=== PATIENT | female | born 1970 | race Caucasian/White ===

== ENCOUNTER 2021-02-23 14:01 | Outpatient (RCR) | payer OTHER | END 2021-05-15 | disposition home or self-care (01) | LOC: WSOH | DX: M25.511 Pain in right shoulder (principal); Z87.59 Personal history of other complications of pregnancy, childbirth and the puerperium; Z98.890 Other specified postprocedural states; Y99.0 Civilian activity done for income or pay | CPT/HCPCS: J3301 ==

== ENCOUNTER 2021-05-23 14:56 | Outpatient (RCR) | payer OTHER | END 2021-06-09 | disposition home or self-care (01) | LOC: WSPT | DX: M25.551 Pain in right hip (principal) | CPT/HCPCS: G0283-GP ==

== ENCOUNTER → 2021-06-06 | Outpatient (CLI) | payer OTHER | LOC: COL.RAD 09:00 | DX: M75.121 Complete rotator cuff tear or rupture of right shoulder, not specified as traumatic (principal); M75.51 Bursitis of right shoulder ==

== ENCOUNTER 2021-07-05 15:55 | Outpatient (CLI) | payer OTHER ==
[~2021-07-05] VITALS: Ht 134.6 cm; Wt 71.0 kg
[2021-07-05 16:35] VITALS: BP 96/67; PULSE 88
== END 2021-07-05 18:04 | disposition home or self-care (01) ==
LOC: EUO 15:55
DX: D50.9 Iron deficiency anemia, unspecified (principal)
CPT/HCPCS: J1756

== ENCOUNTER 2021-12-14 15:27 | Emergency (ER) | payer OTHER ==
[~2021-12-14] VITALS: Ht 152.4 cm; Wt 69.5 kg
[2021-12-14 15:43] VITALS: TEMP 99.2
[2021-12-14 16:10] LABS: COLLECTION METHOD CLEAN CATCH
[2021-12-14 16:14] LABS: HEMOGLOBIN 11.9 g/dl (12.5-16.0); MEAN CELL VOLUME 79 fl (80.0-100.0); MEAN CORPUSCULAR HEMOGLOBIN 27 pg (27-31); MEAN CORPUSCULAR HGB CONC 34 g/dl (33.0-37.0); MEAN PLATELET VOLUME 10.9 fl (7.4-10.4); PLATELET COUNT 307 K/mm3 (130-400); RED BLOOD COUNT 4.45 M/mm3 (4.10-5.30); REDCELL DISTRIBUTION WIDTH-CV 13.9 % (11.5-14.5)
[2021-12-14 16:18] LABS: HEMATOCRIT 35.3 % (37.0-47.0)
[2021-12-14 16:34] LABS: ALBUMIN 3.8 gm/dL (3.5-5.0); BILIRUBIN,TOTAL 1.2 mg/dL (0.2-1.2); C-REACTIVE PROTEIN 18.47 mg/dL (0.00-0.50); CALCIUM 9.1 mg/dL (8.4-10.2); CREATININE, serum 0.79 mg/dL (0.57-1.11); POTASSIUM 3.7 mmol/L (3.5-4.5)
[2021-12-14 16:36] LABS: MUCOUS Present (NOT PRESENT); URINE BACTERIA Occasional /hpf (NONE SEEN); URINE RBC >50 /hpf (0-2)
[2021-12-14 16:37] LABS: PH 5 (5-8); URINE APPEARANCE Hazy (CLEAR/HAZY); URINE BILIRUBIN Positive (NEGATIVE); URINE COLOR Amber (YELLOW); URINE GLUCOSE Negative (NEGATIVE); URINE KETONE 1+ (NEGATIVE); URINE NITRATE Negative (NEGATIVE); URINE PROTEIN(semi-quant) 1+ (NEGATIVE)
[2021-12-14 16:38] LABS: URINE BLOOD 3+ (NEGATIVE); URINE LEUKOCYTE ESTERASE 3+ (NEGATIVE)
[2021-12-14 18:06] LABS: BAND 13 % (0-10); BASOPHIL 1 % (0-2); EOSINOPHIL 1 % (0-4); LYMPHOCYTE 25 % (20.0-51.0); NEUTROPHILS 48 % (42.0-75.2); PLATELET ESTIMATE NORMAL (NORMAL)
[2021-12-14] MEDS ORDERED: OMNICEF 300MG300 MG PO (18:24)
[2021-12-14 19:30] VITALS: BP 114/73; PULSE 68
== END 2021-12-14 19:45 | disposition home or self-care (01) ==
LOC: COL.ER 15:27
PROVIDERS: Physician Assistant
DX: N20.0 Calculus of kidney (principal); N12 Tubulo-interstitial nephritis, not specified as acute or chronic; D72.829 Elevated white blood cell count, unspecified; R74.8 Abnormal levels of other serum enzymes; Z32.02 Encounter for pregnancy test, result negative
CPT/HCPCS: J0696; J2270; J2405; J7030; Q9967

== ENCOUNTER 2022-01-26 05:33 | Day surgery (SDC) | payer OTHER ==
[~2022-01-26] VITALS: Wt 69.9 kg
[2022-01-26] VITALS (24 sets, daily range): BP systolic 84–177; BP diastolic 52–97; PULSE 66–109; TEMP 97.7–99.4
[~2022-01-26 05:33] MED LIST: OMNICEF 300MG300 MG PO
[2022-01-26] MEDS ORDERED: NEXIUM 40MG40 MG PO (05:57)
[2022-01-26] MEDS ORDERED: MOTRIN 200200 MG/TAB PO (05:58)
[2022-01-26 06:22] LABS: BASO # 0.1 K/mm3 (0.0-0.2); BASO % 1.3 % (0.0-2.0); EOS # 0.2 K/mm3 (0.0-0.7); EOS % 2.8 % (0.0-4.0); GRAN # 4.5 K/mm3 (1.4-6.5); GRAN % 56.1 % (42.2-75.2); HEMATOCRIT 38.2 % (37.0-47.0); HEMOGLOBIN 12.5 g/dl (12.5-16.0); LYMPH # 2.5 K/mm3 (1.2-3.4); LYMPH % 30.7 % (20.0-51.0); MEAN CELL VOLUME 80 fl (80.0-100.0); MEAN CORPUSCULAR HEMOGLOBIN 26 pg (27-31); MEAN CORPUSCULAR HGB CONC 33 g/dl (33.0-37.0); MEAN PLATELET VOLUME 11.6 fl (7.4-10.4); MONO # 0.7 K/mm3 (0.1-0.6); MONO % 8.8 % (1.7-9.3); PLATELET COUNT 270 K/mm3 (130-400); RED BLOOD COUNT 4.76 M/mm3 (4.10-5.30); REDCELL DISTRIBUTION WIDTH-CV 13.5 % (11.5-14.5)
[2022-01-26 06:46] LABS: CALCIUM 9.8 mg/dL (8.4-10.2); CREATININE, serum 0.65 mg/dL (0.57-1.11)
--- NOTE | 2022-01-26 08:09 | NUR ---
PATIENT TAKEN TO RADIOLOGY PER CART WITH IV FLUIDS INFUSING. HAD BEEN RESTING WITH EYES CLOSED.
--- NOTE | 2022-01-26 09:09 | NUR ---
PATIENT RETURNS TO ROOM 7 PER CART FROM RADIOLOGY ACCOMPANIED BY RANJANA ARORA. LAYING PRONE ON CART. LEFT NEPHROSTOMY TUBE IN PLACE WITH GUIDE WIRE AND TAPED SECURELY IN PLACE. IV FLUIDS INFUSING AND SIDERAILS UP X2. CALL LIGHT IN REACH. ALLOWED TO REST. OFFERS NO COMPLAINTS OF PAIN.
--- NOTE | 2022-01-26 10:00 | NUR ---
CONTINUES TO REST PRONE ON CART AND OFFERS NO COMPLAINTS. IV FLUIDS INFUISING.
--- NOTE | 2022-01-26 10:45 | NUR ---
PATIENT REPORTS THAT SHE FEELS DRAINAGE ON HER ABDOMEN. NOTED PINK TINGED DRAINAGE SEEPING FROM UNDER THE TEGADERM. ABSORBENT PAD PLACED AROUND SITE AND WILL CONTINUE TO MONITOR.
--- NOTE | 2022-01-26 11:30 | NUR ---
CONTINUES TO REST WITHOUT COMPLAINTS OF PAIN AND IS RESTING ON ABDOMEN. IV FLUIDS INFUSING, SIDERAILS UP X2, AND CALL LIGHT REMAINS IN REACH.
[2022-01-26] MEDS ORDERED: PYRIDIUM 100MG100 MG PO (12:58)
[2022-01-26] MEDS ORDERED: NORCO 325 MG-51 TAB PO (13:00)
--- NOTE | 2022-01-26 16:53 | NUR ---
PATIENT BROUGHT UP FROM PACU APPROXIMATELY 1615. PATIENT REPORTS HEADACHE RATING 1/10 PAIN, REQUESTS TYLENOL. PATIENT ORIENTED TO ROOM. MOTA TO DD WITH BRIGHT PATRICK RED OUTPUT, NO CLOTS. PATIENT ON 1L PER NC. ICE CHIPS AND WATER BROUGHT TO PATIENT. DINNER ORDERED. CALL LIGHT WITHIN REACH.
[2022-01-26 21:22] LABS: HEMOGLOBIN 10.6 g/dl (12.5-16.0)
[2022-01-26 21:34] LABS: HEMATOCRIT 32.1 % (37.0-47.0)
--- NOTE | 2022-01-26 21:50 | NUR ---
Patient assessed around 1924. BP soft at that time. Post-op fluids still hanging, increased rate. Patient drowsy, but does awaken to verbal stimuli. Complaining of headache. Explained that with low BP we did not want to give narcotics at that time, and voiced understanding. Lights turned off and given cold wash cloth to put on head. BP remain soft, 90s/50s. Finished post-op fluids. Call placed to Dr. Wright and updated on BP around 2104. New orders received for H&H to be checked, as well as a 1 L NS bolus to be given. Patient given scheduled Acetaminophen at that time as well. Urine output in [place] had been red tinged, clearing up to dark yellow at this time. In bed with call light within reach. Voices no further questions, needs, or concerns at this time.
[2022-01-27 01:52] VITALS: BP 112/62
[2022-01-27 04:09] VITALS: BP 90/49; PULSE 85
--- NOTE | 2022-01-27 06:34 | NUR ---
Patient has been in bed with call light within reach. Urine varies from dark red to light red. Given scheduled Acetaminophen during the night, as well as PRN Roxicodone once this shift. Voices no questions, needs, or concern at this time.
[2022-01-27 09:52] LABS: HEMOGLOBIN 10.1 g/dl (12.5-16.0); MEAN CELL VOLUME 80 fl (80.0-100.0); MEAN CORPUSCULAR HEMOGLOBIN 26 pg (27-31); MEAN CORPUSCULAR HGB CONC 33 g/dl (33.0-37.0); MEAN PLATELET VOLUME 11.6 fl (7.4-10.4); PLATELET COUNT 214 K/mm3 (130-400); RED BLOOD COUNT 3.85 M/mm3 (4.10-5.30); REDCELL DISTRIBUTION WIDTH-CV 13.7 % (11.5-14.5)
[2022-01-27 10:02] LABS: HEMATOCRIT 30.9 % (37.0-47.0)
--- NOTE | 2022-01-27 12:50 | NUR ---
PATIENT ALERT AND ORIENTED X4. VSS. MOTA TO DD WITH RED-TINGED URINE. IV TO LEFT WRIST INT AND FLUSHES WELL. PATIENT COMPLAINS OF HEADACHE 6/10, REQUESTS PAIN MEDICATION. PATIENT ENCOURAGED TO DRINK EXTRA FLUIDS. PATIENT RESTING IN BED WITH CALL LIGHT NEAR.
--- NOTE | 2022-01-27 13:01 | NUR ---
DISCHARGE INSTRUCTIONS PROVIDED, PATIENT EDUCATION GIVEN. IV DC'D. PATIENT DENIES ANY QUESTIONS OR CONCERNS. PATIENT ESCORTED OUT VIA WHEELCHAIR.
== END 2022-01-27 12:55 | disposition home or self-care (01) ==
LOC: SDCO 05:33 → COL.RAD 07:00 → SURG 07:00 → EDSTATUS 07:00 → SDCO 07:00 → SURG 16:56 → SDCO 01-27 12:55
PROVIDERS: Urology
DX: N20.0 Calculus of kidney (principal)
CPT/HCPCS: OP; A4314; C1726; C1769; C1894; C2617; J0690; J1100; J1170; J2250; J2405; J2704; J3010; J7030; J7120

== ENCOUNTER 2023-02-20 12:33 | Observation (INO) | payer OTHER ==
[~2023-02-20] VITALS: Ht 152.4 cm; Wt 73.5 kg
[~2023-02-20 12:33] MED LIST changes: +FLEXERIL 1010 MG/TAB PO; +INVANZ INJ1 G/VIAL IV; +MACROBID 1100 MG/CAP PO; +MOTRIN 200200 MG/TAB PO; +NEXIUM 40MG40 MG PO; +NORCO 325 MG-51 TAB PO; +PYRIDIUM 100MG100 MG PO
[2023-02-20 13:52] LABS: COLLECTION METHOD CLEAN CATCH
[2023-02-20 14:14] LABS: BASO # 0.1 K/mm3 (0.0-0.2); BASO % 0.5 % (0.0-2.0); EOS # 0.1 K/mm3 (0.0-0.7); EOS % 0.5 % (0.0-4.0); GRAN # 10.4 K/mm3 (1.4-6.5); GRAN % 73.1 % (42.2-75.2); HEMATOCRIT 42.6 % (37.0-47.0); HEMOGLOBIN 13.8 g/dl (12.5-16.0); LYMPH # 2.3 K/mm3 (1.2-3.4); MEAN CELL VOLUME 82 fl (80.0-100.0); MEAN CORPUSCULAR HEMOGLOBIN 27 pg (27-31); MEAN CORPUSCULAR HGB CONC 32 g/dl (33.0-37.0); MONO # 1.3 K/mm3 (0.1-0.6); MONO % 9.4 % (1.7-9.3); PLATELET COUNT 181 K/mm3 (130-400); REDCELL DISTRIBUTION WIDTH-CV 15.5 % (11.5-14.5)
[2023-02-20 14:16] LABS: ALBUMIN 3.9 gm/dL (3.5-5.0); BILIRUBIN,TOTAL 1.3 mg/dL (0.2-1.2); C-REACTIVE PROTEIN 30.08 mg/dL (0.00-0.50); CALCIUM 10.6 mg/dL (8.4-10.2); CREATININE, serum 0.95 mg/dL (0.57-1.11); POTASSIUM 3.4 mmol/L (3.5-4.5); TOTAL PROTEIN 9.2 gm/dL (6.2-8.1)
[2023-02-20 14:18] LABS: PH 5.5 (5.0-8.5); URINE APPEARANCE Cloudy (CLEAR/HAZY); URINE BLOOD 3+ (NEGATIVE); URINE GLUCOSE Negative (NEGATIVE); URINE KETONE 1+ (NEGATIVE); URINE NITRATE Negative (NEGATIVE); URINE PROTEIN(semi-quant) 3+ (NEGATIVE)
[2023-02-20 14:23] LABS: URINE COLOR OTHER (YELLOW)
[2023-02-20 14:24] LABS: MUCOUS Present (NOT PRESENT); URINE BACTERIA Rare /hpf (NONE SEEN); URINE RBC 20-50 /hpf (0-2)
[2023-02-20 17:13] VITALS: BP 106/75; PULSE 82; TEMP 97.4
[2023-02-20] MEDS ORDERED: TYLENOL 325MG325 MG PO (17:58)
[2023-02-20] MEDS ORDERED: ADVIL200 MG PO (17:59)
--- NOTE | 2023-02-20 18:20 | NUR ---
Patient admitted to unit around 1730. Patient is alert and oriented x4. Reports no abdominal pain at this time. Skin is intact. Patient's primary language is jamaican, but she understands and can speak sammarinese. Declined offer for interpretation services at this time. Dinner tray ordered. LR running per orders through [facility] IV site. Patient reports no prescription home meds, but takes either Tylenol or Ibuprofen almost daily as needed. Patient in bed with call light in reach.
[2023-02-20 20:00] VITALS: BP 96/69; PULSE 81; TEMP 97.6
--- NOTE | 2023-02-20 20:30 | NUR ---
Patient resting in bed. States she has a headache and rates her pain a 6/10, pain meds given. Assessment complete. Denies any other needs at this time. Call light and personal items in reach. Bed in low postion.
[2023-02-20 21:00] VITALS: BP_SYST 96
[2023-02-21] VITALS (13 sets, daily range): BP systolic 96–139; BP diastolic 60–84; PULSE 65–88; TEMP 97.7–98.4
--- NOTE | 2023-02-21 06:00 | NUR ---
Patient resting in bed. Denies any needs at this time. Patient monitored throughout the night by this nurse. Denies any pain at this time. Call light and personal items in reach. Bed in low postion.
[2023-02-21 06:43] LABS: BASO # 0.1 K/mm3 (0.0-0.2); BASO % 0.7 % (0.0-2.0); EOS # 0.2 K/mm3 (0.0-0.7); EOS % 2.8 % (0.0-4.0); GRAN % 58.7 % (42.2-75.2); LYMPH # 1.9 K/mm3 (1.2-3.4); LYMPH % 27.5 % (20.0-51.0); MEAN CELL VOLUME 82 fl (80.0-100.0); MEAN CORPUSCULAR HGB CONC 33 g/dl (33.0-37.0); MEAN PLATELET VOLUME 12.9 fl (7.4-10.4); MONO # 0.7 K/mm3 (0.1-0.6); PLATELET COUNT 125 K/mm3 (130-400); RED BLOOD COUNT 3.99 M/mm3 (4.10-5.30); REDCELL DISTRIBUTION WIDTH-CV 15.5 % (11.5-14.5)
[2023-02-21 06:50] LABS: HEMATOCRIT 32.6 % (37.0-47.0); HEMOGLOBIN 10.7 g/dl (12.5-16.0); MEAN CORPUSCULAR HEMOGLOBIN 27 pg (27-31)
[2023-02-21 06:52] LABS: C-REACTIVE PROTEIN 16.9 mg/dL (0.00-0.50); CREATININE, serum 0.69 mg/dL (0.57-1.11); POTASSIUM 4.5 mmol/L (3.5-4.5)
--- NOTE | 2023-02-21 08:31 | NUR ---
UPON ENTERING ROOM PATIENT WAS WASHING HER HANDS. SHE IS ALERT AND ORIENTED X4. SHE REPORTS A HEADACHE AND RATES IT AT A 2 FROM 1-10 SCALE.PATIENTIS PLEASANT. CALL LIGHT WITHIN REACH AND BED AT LOWEST POSITION.
[2023-02-21] MEDS ORDERED: LEVAQUIN 750MG750 M1 PO (11:21)
--- NOTE | 2023-02-21 13:56 | NUR ---
vamp cut out worker met with patient to discuss discharge planning. Patient confirmed she lives in [place] with her , Jon, P#: [phone]. Patient reports her primary care physician is Dr. Gupta and pharmacy is [facility] in [place]. Patient reports she has not struggled to afford any of her medications. Patient does not have a DPOA-HC and did not want to complete one at this time. Patient denies having any DME at home. Patient reports she is independent at home with her ADLS. Patient expressed she would like to return home at time of discharge. Patient asked when she would be able to be discharged, hospice social worker explained the doctor would be in to discuss that with her. No further needs at this time. Discharge Plan: Home
--- NOTE | 2023-02-21 20:30 | NUR ---
Patient resting in bed. Denies any pain at this time. Assessment complete. Denies any other needs. IV in right AC appears clean, dry, intact, and infusing with no complications. Call light and personal items in reach. Bed in low position.
[2023-02-22] VITALS (8 sets, daily range): BP systolic 117–141; BP diastolic 64–78; PULSE 67–84; TEMP 97.7–98.9
[2023-02-22 05:46] LABS: BASO # 0.1 K/mm3 (0.0-0.2); EOS # 0.2 K/mm3 (0.0-0.7); EOS % 2.8 % (0.0-4.0); GRAN # 3.4 K/mm3 (1.4-6.5); GRAN % 56.1 % (42.2-75.2); HEMOGLOBIN 10.6 g/dl (12.5-16.0); LYMPH # 1.9 K/mm3 (1.2-3.4); LYMPH % 30.8 % (20.0-51.0); MEAN CELL VOLUME 82 fl (80.0-100.0); MEAN CORPUSCULAR HEMOGLOBIN 27 pg (27-31); MEAN CORPUSCULAR HGB CONC 33 g/dl (33.0-37.0); MEAN PLATELET VOLUME 12.4 fl (7.4-10.4); MONO # 0.5 K/mm3 (0.1-0.6); PLATELET COUNT 155 K/mm3 (130-400); REDCELL DISTRIBUTION WIDTH-CV 15.5 % (11.5-14.5)
[2023-02-22 05:52] LABS: HEMATOCRIT 32.6 % (37.0-47.0)
--- NOTE | 2023-02-22 06:00 | NUR ---
Patient resting in bed. Denies any pain or needs at this time. Patient monitored throughout the night by this nurse. Bed in low position. Call light and personal items in reach.
[2023-02-22 06:06] LABS: CALCIUM 8.6 mg/dL (8.4-10.2); CREATININE, serum 0.61 mg/dL (0.57-1.11); POTASSIUM 3.9 mmol/L (3.5-4.5)
[2023-02-22] MEDS ORDERED: MONUROL 3 GM3 G/PKT PO ×2 (08:29)
--- NOTE | 2023-02-22 09:20 | NUR ---
PT AWAKE IN CHAIR UPON ENTERING. FLUIDS RUNNING PER ORDER AND PT REPORTS MILD PAIN BUT DENIES NEED FOR PRN PAIN MED. PT DENIES NEEDS AT THIS TIME , CALL LIGHT IN REACH.
--- NOTE | 2023-02-22 11:56 | NUR ---
IV DISCONTINUED, SHORTLY AFTER KAEL HUERTAS IN ROOM AND NOTIFIED THIS NURSE TO HOLD ON DISCHARGE PAPERWORK DUE TO NEWLY RESULTED LAB WORK. PT DRESSED IN PERSONAL CLOTHES AND UPDATED ON SITUATION, VERBALLIZED UNDERSTANDING. NO NEW ORDERS AT THIS TIME
[2023-02-22] MEDS ORDERED: INVANZ INJ1 G/VIAL IV (12:06)
--- NOTE | 2023-02-22 16:44 | NUR ---
PICC PLACED BY IV SERVICES THIS AFTERNOON AND PT SCHEDULED TO HAVE ANTIBIOTIC TREATMENT IN [facility] UPON DISCHARGE. PT REPORTS HAVING A PICC IN THE PAST FOR LICENSED NURSE PRACTITIONER ABX TREATMENT AND IS FAMILIAR WITH THE PROCESS. DISCHARGE INSTRUCTIONS GIVEN AND ALL QUESTIONS ANSWERED, PT VERBALIZED UNDERSTANDING. ALL INFORMATION FAXED TO [facility]. 1 DOSE OF ERTAPENEM GIVEN AND PICC FLUSHES WELL WITH BLOOD RETURN. PT DENIES NEEDS AT THIS TIME AND IS DRESSED IN PERSONAL CLOTHES.
== END 2023-02-22 16:48 | disposition home or self-care (01) ==
LOC: COL.ER 12:33 → MEDICAL 15:44 → EDBEDREQ 16:41 → MEDICAL 02-22 16:48
PROVIDERS: Nurse Practitioner; ADMIT Internal Medicine
DX: A41.51 Sepsis due to Escherichia coli [E. coli] (principal); N20.0 Calculus of kidney; N39.0 Urinary tract infection, site not specified; B96.20 Unspecified Escherichia coli [E. coli] as the cause of diseases classified elsewhere; G89.29 Other chronic pain; M54.9 Dorsalgia, unspecified; E87.6 Hypokalemia; Z79.899 Other long term (current) drug therapy
CPT/HCPCS: C1751; C1892; G0378; J0696; J1335; J1650; J2270; J2405; J7030; J7120; Q9967

== ENCOUNTER 2023-03-07 11:00 | Outpatient (RCR) | payer OTHER ==
[2023-02-23 08:13] VITALS: BP 138/78; PULSE 70; TEMP 98
[2023-02-24 09:10] VITALS: BP 121/82; PULSE 66; TEMP 98
[2023-02-25 08:35] VITALS: BP 116/73; PULSE 68; TEMP 97.6
[2023-02-25 08:36] LABS: HEMATOCRIT 36.1 % (37.0-47.0); HEMOGLOBIN 11.5 g/dl (12.5-16.0); MEAN CELL VOLUME 82 fl (80.0-100.0); MEAN CORPUSCULAR HEMOGLOBIN 26 pg (27-31); MEAN CORPUSCULAR HGB CONC 32 g/dl (33.0-37.0); MEAN PLATELET VOLUME 11.4 fl (7.4-10.4); PLATELET COUNT 286 K/mm3 (130-400); RED BLOOD COUNT 4.39 M/mm3 (4.10-5.30); REDCELL DISTRIBUTION WIDTH-CV 14.9 % (11.5-14.5)
[2023-02-25 08:54] LABS: ALBUMIN 3.3 gm/dL (3.5-5.0); BILIRUBIN,TOTAL 0.2 mg/dL (0.2-1.2); C-REACTIVE PROTEIN 2.08 mg/dL (0.00-0.50); CALCIUM 9.4 mg/dL (8.4-10.2); CREATININE, serum 0.66 mg/dL (0.57-1.11); POTASSIUM 4.3 mmol/L (3.5-4.5); TOTAL PROTEIN 6.8 gm/dL (6.2-8.1)
[2023-02-26 08:21] VITALS: BP 112/78; PULSE 78; TEMP 98
[2023-02-27 08:29] VITALS: BP 115/76; PULSE 66; TEMP 97.8
[2023-02-28 08:12] VITALS: BP 101/69; PULSE 79; TEMP 98.4
[2023-03-01 08:08] VITALS: BP 90/61; PULSE 78; TEMP 98
[2023-03-02 08:55] VITALS: BP 107/73; PULSE 69; TEMP 98
[2023-03-03 08:42] VITALS: BP 108/77; PULSE 84; TEMP 97.6
[2023-03-04 08:08] VITALS: BP 115/76; PULSE 73; TEMP 97.6
[2023-03-04 08:40] LABS: BASO # 0.1 K/mm3 (0.0-0.2); BASO % 1.2 % (0.0-2.0); EOS # 0.2 K/mm3 (0.0-0.7); EOS % 2.7 % (0.0-4.0); GRAN # 2.7 K/mm3 (1.4-6.5); GRAN % 45.1 % (42.2-75.2); HEMOGLOBIN 11.8 g/dl (12.5-16.0); LYMPH # 2.6 K/mm3 (1.2-3.4); LYMPH % 44.7 % (20.0-51.0); MEAN CELL VOLUME 83 fl (80.0-100.0); MEAN CORPUSCULAR HEMOGLOBIN 27 pg (27-31); MEAN CORPUSCULAR HGB CONC 32 g/dl (33.0-37.0); MEAN PLATELET VOLUME 11.1 fl (7.4-10.4); MONO # 0.4 K/mm3 (0.1-0.6); MONO % 6.1 % (1.7-9.3); PLATELET COUNT 291 K/mm3 (130-400); RED BLOOD COUNT 4.42 M/mm3 (4.10-5.30); REDCELL DISTRIBUTION WIDTH-CV 14.6 % (11.5-14.5)
[2023-03-04 08:42] LABS: HEMATOCRIT 36.7 % (37.0-47.0)
[2023-03-04 08:51] LABS: ALBUMIN 3.6 gm/dL (3.5-5.0); BILIRUBIN,TOTAL 0.2 mg/dL (0.2-1.2); C-REACTIVE PROTEIN 0.16 mg/dL (0.00-0.50); CALCIUM 8.8 mg/dL (8.4-10.2); CREATININE, serum 0.61 mg/dL (0.57-1.11); POTASSIUM 3.9 mmol/L (3.5-4.5); TOTAL PROTEIN 6.9 gm/dL (6.2-8.1)
[~2023-03-07] VITALS: Ht 152.4 cm; Wt 76.3 kg
[~2023-03-07 11:00] MED LIST changes: +ADVIL200 MG PO; +LEVAQUIN 750MG750 M1 PO; +MONUROL 3 GM3 G/PKT PO; +TYLENOL 325MG325 MG PO
[2023-03-07 11:06] VITALS: BP 118/78; PULSE 68; TEMP 97.7
== END 2023-03-07 12:32 | disposition home or self-care (01) ==
LOC: EUO 11:00
PROVIDERS: Internal Medicine; Student in an Organized Health Care Education/Training Program
DX: N20.0 Calculus of kidney (principal); E87.6 Hypokalemia; R50.9 Fever, unspecified
CPT/HCPCS: J1335